=== PATIENT | male | born 1995 | race African-American/Black ===

== ENCOUNTER 2016-10-17 22:18 | Inpatient (IN) | payer OTHER ==
[~2016-10-17] VITALS: Ht 160 cm; Wt 63.5 kg
[~2016-10-17 22:18] MED LIST: EMTR1TAB10 PO; MULT-24 PO
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
[2016-10-17 23:05] VITALS: BP 109/69
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
[2016-10-17] MEDS ORDERED: EMTR1TAB14 PO (23:15)
[2016-10-17 23:22] LABS: *AMPHETAMINE, URINE POSITIVE (NEGATIVE); *BARBITURATE, URINE NEGATIVE (NEGATIVE); *CANNABINOID, URINE POSITIVE (NEGATIVE); *COCCAINE, URINE POSITIVE (NEGATIVE); *OPIATE, URINE NEGATIVE (NEGATIVE); *PHENCYCLIDINE SCREEN,URINE NEGATIVE (NEGATIVE)
[2016-10-17] MEDS ORDERED: DICYCLOMINE HCL 20 MG TABLET PO PRN (23:45)
[2016-10-17] MEDS ORDERED: ACETAMINOPHEN 325 MG TABLET PO PRN (23:45)
[2016-10-17] MEDS ORDERED: CLONIDINE HCL 0.1 MG TABLET PO PRN (23:45)
[2016-10-17] MEDS ORDERED: MIRALAX 17 GM POWD.PACK PO PRN (23:45)
[2016-10-17] MEDS ORDERED: HYDROXYZINE PAMOATE 25 MG CAPSULE PO PRN (23:45)
[2016-10-17] MEDS ORDERED: ONDANSETRON 4 MG/2 ML VIAL IM PRN (23:45)
[2016-10-17] MEDS ORDERED: LOPERAMIDE HCL 2 MG CAPSULE PO PRN ×2 (23:45)
[2016-10-17] MEDS ORDERED: LORAZEPAM 2 MG/1 ML VIAL IM PRN (23:45)
[2016-10-17] MEDS ORDERED: MAG HYDROX/AL HYDROX/SIMETH 30 ML LIQUID UDC PO PRN (23:45)
[2016-10-17] MEDS ORDERED: diphenhydrAMINE 50 MG CAPSULE PO PRN (23:45)
[2016-10-17] MEDS ORDERED: MAGNESIUM HYDROXIDE 30 ML LIQUID UDC PO PRN (23:45)
[2016-10-17] MEDS ORDERED: LORAZEPAM 1 MG TABLET PO PRN ×2 (23:45)
[2016-10-17] MEDS ORDERED: ONDANSETRON ODT 4 MG TAB.RAPDIS SL PRN (23:45)
[2016-10-18] VITALS: BP 123/76
[2016-10-18 04:00] VITALS: BP 110/63
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
[2016-10-18 08:00] VITALS: BP 124/71
--- NOTE | 2016-10-18 08:00 | NUR ---
START OF SHIFT NOTE Received report from night nurse, 20 year old male admitted for Alcohol and Methamphetamine dependence. NKA, Full Code, Regular Diet, Fall and Seizures Precautions. Patient denies Seizures History. Patient denies PMH.Pt did not receive any PRN medication, slept for 5 hours, last CIWA-3. Received pt asleep in his room, Breathing normal no SOB noted, Skin intact warm and dry to touch. No s/s of distress noted. All safety measures in place, Call light within reach. Will cont to monitor.
[2016-10-18] MEDS: MULTIVITAMINS,THERAPEUTIC TABLET PO SCH (08:58)
[2016-10-18] MEDS: FOLIC ACID 1 MG TABLET PO SCH (08:58)
[2016-10-18] MEDS ORDERED: THIAMINE HCL 200 MG/2 ML VIAL IM ONE (09:00)
[2016-10-18] MEDS ORDERED: THIAMINE HCL 100 MG TABLET PO SCH (09:00)
[2016-10-18] MEDS ORDERED: TUBERCULIN,PURIF.PROT.DERIV. 5 TU/0.1 ML TEST ID ONE (09:00)
[2016-10-18] MEDS: IBUPROFEN 400 MG TABLET PO PRN (09:13)
--- NOTE | 2016-10-18 09:13 | NUR ---
PRN ATIVAN/MOTRIN Pt complaining of light headed, pins needle sensation on his hands, sweats, anxiety, agitation, CIWA score noted -7, and also complaining of general body pain 4/10. Administered PRN Ativan 1 mg Po/Motrin 400mg 1 tab Po as ordered. Will cont to monitor and reassess for effectiveness.
--- NOTE | 2016-10-18 10:13 | NUR ---
ATIVAN/MOTRIN REASSESSMENT Per pt pain subside to 1/10, and Ativan was also effective in reducing withdrawal symptoms CIWA score noted -4.
[2016-10-18 12:00] VITALS: BP 126/68
[2016-10-18] MEDS: LORAZEPAM 1 MG TABLET PO SCH ×3 (12:55→20:32)
[2016-10-18] MEDS: THIAMINE HCL 100 MG TABLET PO SCH (14:04)
[2016-10-18 16:00] VITALS: BP 121/70
--- NOTE | 2016-10-18 19:03 | NUR ---
END OF SHIFT NOTE Pt presented with light headed, pins needle sensation on his hands, sweats, anxiety, agitation, CIWA score noted -7, general body pain 4/10. Pt was given PRN Ativan 1 mg Po/Motrin 400mg 1 tab Po as ordered effective with pain level decreased to 1/10 and CIWA score reduce to 4. Pt rested in his room most of the shift and isolated self from peers. He did not attend any groups or activities. Encourage PO fluids as tolerated. All safety measures in place, Call light within reach. Pt endorsed to night nurse in stable condition.
--- NOTE | 2016-10-18 19:25 | NUR ---
Start of shift: Received patient admitted for ETOH and Methamphetamine dependence. Patient is awake, alert, and oriented x4. Mood: depressed, Affect: superficial. Behavior; cooperative with care. Offered snacks, consumed 50%. Speech is clear, normal rate and tone. Able to make needs known. Isolated to self. Patient on 5 day Ativan taper and tolerating well. Will continue to monitor behavior and medication effectiveness.
[2016-10-18 21:39] VITALS: BP 125/81
[2016-10-19] VITALS: BP 122/72
[2016-10-19 04:39] VITALS: BP 120/61
--- NOTE | 2016-10-19 06:28 | NUR ---
End of shift: Patient remained calm and cooperative with care. Isolative to room. Slept 9 hours. Vital signs WNL and charted accordingly. Compliant with medication. Patient remained on 5 day Ativan taper and tolerated well. No behavior issues. Easily re-directable. Patient compliant of hearing voices. However, patient was unable to state what the voices are saying. Will endorse to morning nurse to follow up and monitor.
--- NOTE | 2016-10-19 07:48 | NUR ---
START OF SHIFT NOTE Received report from night nurse, 20 year old male admitted for Alcohol and Methamphetamine dependence. NKA, Full Code, Regular Diet, Fall and Seizures Precautions. Patient denies Seizures History. Patient denies PMH.Pt did not receive any PRN medication, slept for 9 hours, last CIWA-1. Received pt asleep in his room, Breathing normal no SOB noted, Skin intact warm and dry to touch. No s/s of distress noted. All safety measures in place, Call light within reach. Will cont to monitor.
[2016-10-19 08:00] VITALS: BP 114/70
[2016-10-19] MEDS: MULTIVITAMINS,THERAPEUTIC TABLET PO SCH (08:51)
[2016-10-19] MEDS: THIAMINE HCL 100 MG TABLET PO SCH (08:52)
[2016-10-19] MEDS: LORAZEPAM 1 MG TABLET PO SCH ×3 (08:52→20:21)
[2016-10-19] MEDS: FOLIC ACID 1 MG TABLET PO SCH (08:52)
[2016-10-19] MEDS ORDERED: PATIENT MAY USE OWN MED- MD OK PO SCH (09:00)
[2016-10-19 12:00] VITALS: BP 116/60
[2016-10-19 16:00] VITALS: BP 121/87
--- NOTE | 2016-10-19 19:14 | NUR ---
END OF SHIFT NOTE Pt cont with Ativan taper tolerating well. Pt did not attend any groups. Ativan taper effective as evidenced by Vital signs WNL and and CIWA decreased from 5 at 0800 to 4 at 1200 and at 1600 was 3. Pt did not receive any PRN medication during shift. Skin intact warm and dry to touch. Pt remained complaint with plan of care. Encouraged PO fluids as tolerated. All safety measures in place, Call light within reach. Pt endorsed to night nurse in stable condition.
[2016-10-19 20:00] VITALS: BP 121/76
--- NOTE | 2016-10-19 20:00 | NUR ---
START OF SHIFT NOTE Received 20 year old male, awake, lying on bed in room, admitted for Alcohol and Methamphetamine dependence. NKA, Full Code, Regular Diet, Fall and Seizures Precautions. Patient denies PMH. None labored breathing noted, Skin intact warm and dry to touch. No s/s of distress noted. All safety measures in place, Call light within reach. Last CIWA-3. Will continue to monitor.
[2016-10-20] VITALS: BP 124/63
--- NOTE | 2016-10-20 07:15 | NUR ---
START OF SHIFT NOTE 20 year old female admitted to [facility] on 10/17/2016 at 2305 for medically supervised withdrawal from Alcohol and Methamphetamine dependence. Patient reports NKA.. Patient placed on Full Code, Regular Diet, Fall and Seizures Precautions. Patient denies Seizures History. Patient reports no PCP. Received report from night nurse. Pt lethargic, withdrawn, slow to respond to conversation but able to follow commands and is oriented x 4. Denies pain and anxiety. Encouraged participation in group today. Safety measures in place, bed in low position and locked, call light within reach. Will continue to monitor.
--- NOTE | 2016-10-20 07:18 | NUR ---
END OF SHIFT NOTE Px is 20 y/o male with Ativan taper tolerating well. During shift, px stayed most of the time inside his room. Pt did not receive any PRN medication during shift. Pt remained compliant with plan of care. Encouraged PO fluids as tolerated. Slept for 8hrs with fluid intake of 850ml, voided x0 and no BM. All safety measures in place, Call light within reach. Latest CIWA 3. Px endorsed to AM shift nurse
[2016-10-20 08:00] VITALS: BP 121/77
[2016-10-20] MEDS: FOLIC ACID 1 MG TABLET PO SCH (09:30)
[2016-10-20] MEDS: THIAMINE HCL 100 MG TABLET PO SCH (09:30)
[2016-10-20] MEDS: MULTIVITAMINS,THERAPEUTIC TABLET PO SCH (09:30)
[2016-10-20] MEDS: LORAZEPAM 1 MG TABLET PO SCH ×4 (09:30→21:00)
[2016-10-20 12:00] VITALS: BP 123/80
[2016-10-20 16:00] VITALS: BP 125/66
--- NOTE | 2016-10-20 19:25 | NUR ---
Start of Shift Patient Received. Patient is in his room sleeping but aroused to verbal stimuli. Breathing even and non labored. No signs of pain or discomfort noted. Patient is a 20 year old male, admitted on 10/17/16 for ETOH Dependence and is currently receiving a 5 day Ativan taper. No known allergies, full code, following a regular diet, placed on fall and seizure precautions, and skin noted intact. Patient denies past medical history but is noted HIV(+). Per endorsement, patient noted to be very withdrawn and isolative to room. No PRN medications administered. Last noted CIWA is 5. All needs attended to promptly. Will continue plan of care as ordered.
--- NOTE | 2016-10-20 19:31 | NUR ---
END OF SHIFT NOTE 20 year old male whom identifies as a female, admitted to [facility] on 10/17/2016 at 2305 for medically supervised withdrawal from Alcohol and Methamphetamine dependence. Patient reports NKA.. Patient placed on Full Code, Regular Diet, Fall and Seizures Precautions. Patient sleeping each time assessed during shift but awakens to verbal, slow to respond to questions, oriented x 4. Denies pain and anxiety. No PRN medications given. CIWA scores of 5 at 0926; score of 8 at 1236; and 5 at 1600. Appetite good, ate 75 % at breakfast and 100% at lunch and dinner. Intake 1250 ml and void x 2, no stool. At this time, pt has no complaints, Dr Johnson is aware of pt's sleeping patterns, NNO. Pt bed is locked in a low position, call light within reach, side rails up x 2. SBAR report given to oncoming shift.
[2016-10-20 20:30] VITALS: BP 119/68
[2016-10-21 00:15] VITALS: BP 118/71
[2016-10-21 04:10] VITALS: BP 113/63
--- NOTE | 2016-10-21 07:10 | NUR ---
End of Shift Patient is in bed sleeping. Breathing even and non labored. No signs of pain or discomfort. Patient was admitted on 10/17/16 for ETOH Dependence and is currently receiving a 5 day Ativan taper. Patient noted to be sleeping during routine medication pass with no signs of increased signs of withdrawal. Last noted CIWA 3. All needs attended to promptly. Will continue plan of care as ordered.
--- NOTE | 2016-10-21 07:30 | NUR ---
Start of shift note; Received report from night nurse. Patient is a 20 year old male admitted on 10/17/16 for ETOH dependence. Patient was placed on a 5 day Ativan taper, no adverse reactions. Patient has a history of HIV. NKA, on regular diet and fall and seizure precautions. All safety measures secured. Patient slept for 5 hours. Patient's last CIWA is 3 at 0400. All safety measures secured. Will continue to monitor patient.
[2016-10-21 08:00] VITALS: BP 124/75
[2016-10-21] MEDS: LORAZEPAM 1 MG TABLET PO SCH ×3 (09:12→21:12)
[2016-10-21] MEDS: THIAMINE HCL 100 MG TABLET PO SCH (09:12)
[2016-10-21] MEDS: MULTIVITAMINS,THERAPEUTIC TABLET PO SCH (09:12)
[2016-10-21] MEDS: FOLIC ACID 1 MG TABLET PO SCH (09:12)
[2016-10-21 12:00] VITALS: BP 133/72
[2016-10-21 16:00] VITALS: BP 127/83
--- NOTE | 2016-10-21 18:16 | NUR ---
End of shift note; Patient is AOX4. Patient is a 20 year old male admitted on 10/17/16 for ETOH dependence. Patient was placed on a 5 day Ativan taper, no adverse reactions. Patient has a history of HIV. NKA, on regular diet and fall and seizure precautions. Patient remained compliant with treatment plan. Medications were effective in reducing withdrawal symptoms. All safety measures secured. Met all needs.
--- NOTE | 2016-10-21 19:20 | NUR ---
Start of Shift Patient Received. Patient is in activities room participating in group activities. Patient is a 20 year old male, admitted on 10/17/16 for ETOH Dependence and is currently receiving a 5 day Ativan taper. No known allergies, full code, following a regular diet, placed on fall and seizure precautions, and skin noted intact. Patient denies past medical history but is noted HIV(+). Per endorsement, patient noted to participate in group activities and meetings. No PRN Medications administered. Last noted CIWA is 4. All needs attended to promptly. Will continue plan of care as ordered.
[2016-10-21 20:30] VITALS: BP 141/91
[2016-10-21] MEDS: IBUPROFEN 400 MG TABLET PO PRN (21:12)
--- NOTE | 2016-10-21 21:15 | NUR ---
PRN Medication administration Patient is verbalizing pain due to headache 5/10 with PRN Motrin administered as per orders. Will continue to monitor.
--- NOTE | 2016-10-21 22:00 | NUR ---
PRN Medication Reassessment Patient is noted in bed sleeping. Breathing even and non labored. Patient was given PRN Motrin for pain of 5/10 headache. Patient is able to sleep well with no interruptions or complications noted. No facial grimacing noted. PRN Motrin noted to be effective. Will continue to monitor.
[2016-10-22 00:35] VITALS: BP 122/79
[2016-10-22 04:06] VITALS: BP 118/67
[2016-10-22 06:52] LABS: BASOPHILS % (AUTO) 0.7 % (0.0-2.0); EOSINOPHILS # (AUTO) 0.1 K/uL (0.0-0.7); EOSINOPHILS % (AUTO) 1.8 % (0.0-7.0); HEMATOCRIT 44.5 % (40-50); HEMOGLOBIN 14.3 G/DL (14.0-18.0); LYMPHOCYTES # (AUTO) 2.4 K/UL (0.8-4.8); LYMPHOCYTES % (AUTO) 33.7 % (20.5-74.5); MEAN CORPUSCULAR HEMOGLOBIN 27.3 UUG (27.0-31.0); MEAN CORPUSCULAR HGB CONC 32 g/dL (32.0-37.0); MEAN CORPUSCULAR VOLUME 85.3 FL (82.0-92.0); MONOCYTES # (AUTO) 0.4 K/UL (0.1-1.30); MONOCYTES % (AUTO) 6.3 % (0-11); NEUTROPHILS # (AUTO) 4.2 K/UL (1.8-8.9); NEUTROPHILS % (AUTO) 57.5 % (31.5-64.5); PLATELET COUNT (AUTO) 168 K/UL (150-450); RED BLOOD CELL COUNT(AUTO) 5.22 MIL/UL (4.7-6.1)
[2016-10-22 06:54] LABS: WHITE BLOOD COUNT (AUTO) 7.1 K/UL (4.0-11.2)
[2016-10-22 07:23] LABS: ALANINE AMINOTRANSFERASE 19 U/L (16-63); ALKALINE PHOSPHATASE 53 U/L (50-136); ASPARTATE AMINOTRANSFERASE 14 U/L (15-37); BILIRUBIN,DIRECT < 0.1 mg/dL (0.0-0.2); BILIRUBIN,TOTAL 0.3 mg/dL (0.2-1.0); CARBON DIOXIDE 33 mmol/L (21-32); CHLORIDE 105 mmol/L (98-107); CREATININE 1.1 mg/dL (0.6-1.3); GLUCOSE 108 mg/dL (74-106); MAGNESIUM 1.9 mg/dL (1.8-2.4); PHOSPHOROUS 3.8 mg/dL (2.5-4.9); POTASSIUM 4.5 mmol/L (3.5-5.1); TOTAL PROTEIN, SERUM 7.1 g/dL (6.4-8.2); UREA NITROGEN, BLOOD 9 mg/dL (7-18)
--- NOTE | 2016-10-22 07:24 | NUR ---
End of Shift Patient is in bed awake, alert and verbally responsive. Breathing even and non labored. No signs of pain or discomfort. Patient was admitted on 10/17/16 for ETOH Dependence and is currently receiving a 5 day Ativan taper. Patient was given PRN Motrin for headache of 10 with medication noted to be effective. Last noted CIWA 6. All needs attended to promptly. Will endorse to continue plan of care as ordered.
--- NOTE | 2016-10-22 07:53 | NUR ---
BEGINNING OF SHIFT Patient endorsement report received from night club manager nurse, all pertinent information discussed. Patient is a 20 year old male with admitting Dx: etoh/Methamphetamines dependence. Patient currently under close observation, with ongoing 5 day Ativan taper as ordered, and is currently scheduled to begin day 5 of taper. Patient slept for 8 hours and received prn: Motrin as per night club manager, medications were effective. Patient with last ciwa score of: 6. Patient received awake, alert and oriented x4, educated regarding plan of care for the day and medication regimen with good verbal understanding. Fall and seizure precautions observed. Safety measures in place. will continue to monitor closely.
[2016-10-22 08:59] VITALS: BP 110/62
[2016-10-22] MEDS: FOLIC ACID 1 MG TABLET PO SCH (09:17)
[2016-10-22] MEDS: THIAMINE HCL 100 MG TABLET PO SCH (09:17)
[2016-10-22] MEDS: LORAZEPAM 1 MG TABLET PO SCH ×2 (09:18→20:39)
[2016-10-22] MEDS: MULTIVITAMINS,THERAPEUTIC TABLET PO SCH (09:18)
[2016-10-22 13:00] VITALS: BP 130/72
[2016-10-22 17:15] VITALS: BP 128/84
--- NOTE | 2016-10-22 19:01 | NUR ---
END OF SHIFT Patient alert and oriented x4, vital signs stable during shift. Patient compliant with therapeutic plan of care. Patient with admitting Dx: ETOH/methamphetamine dependence. Patient currently with ongoing 5 day Ativan taper, well tolerated, no ASE, currently on day 5 of taper. Detox medication effective at reducing withdrawal symptoms. 0900 assessment patient presented with: moderate anxiety with ciwa score of: 4; 1300 assessment patient presented with: anxiety ciwa score: 3; 1700 assessment patient presented with: mild anxiety with ciwa score of: 1. Detox medication effective at reducing withdrawal Symptoms. Patient was administered no PRNs during shift. Patient denies any SI/HI. Encouraged to attend group therapies/sessions to learn new coping skills to prevent relapse, noted attending and participating.Encouraged adequate PO fluid intake as tolerated. Safety measures in place. Call light kept with in reach. All needs met and rendered. Patient endorsed to pest control service technician nurse, all pertinent information discussed.
--- NOTE | 2016-10-22 19:25 | NUR ---
Start of Shift Patient Received. Patient is in activities room participating in group activities. Patient is a 20 year old male, admitted on 10/17/16 for ETOH Dependence and is currently receiving a 5 day Ativan taper. No known allergies, full code, following a regular diet, placed on fall and seizure precautions, and skin noted intact. Patient denies past medical history but is noted HIV(+). Per endorsement, patient noted to participate in group activities and meetings. No PRN Medications administered. Last noted CIWA is 1. All needs attended to promptly. Will continue plan of care as ordered.
[2016-10-22 20:33] VITALS: BP 136/77
[2016-10-23 00:20] VITALS: BP 122/71
[2016-10-23 04:26] VITALS: BP 119/79
--- NOTE | 2016-10-23 07:04 | NUR ---
End of Shift Patient is in bed sleeping. Breathing even and non labored. No signs of pain or discomfort. Patient was admitted on 10/17/16 for ETOH Dependence and is currently receiving a 5 day Ativan taper. Patient was given PRN Motrin for headache of 06/22 with medication noted to be effective. Last noted CIWA 6. All needs attended to promptly. Will endorse to continue plan of care as ordered.
--- NOTE | 2016-10-23 07:30 | NUR ---
Start of shift note; Received report from night nurse. Patient is a 20 year old male admitted on 10/17/16 for ETOH dependence. Patient was placed on a 5 day Ativan taper, no adverse reactions. Patient has a history of HIV. NKA, on regular diet and fall and seizure precautions. All safety measures secured. Patient slept for 8 hours. Patient's last CIWA is 3 at 0400. All safety measures secured. Will continue to monitor patient.
[2016-10-23 08:00] VITALS: BP 118/70
[2016-10-23] MEDS: MULTIVITAMINS,THERAPEUTIC TABLET PO SCH (08:45)
[2016-10-23] MEDS: THIAMINE HCL 100 MG TABLET PO SCH (08:45)
[2016-10-23] MEDS: FOLIC ACID 1 MG TABLET PO SCH (08:46)
[2016-10-23 12:00] VITALS: BP 122/80
[2016-10-23 16:00] VITALS: BP 114/80
--- NOTE | 2016-10-23 18:15 | NUR ---
End of shift note; Patient is AOX4. Patient is a 20 year old male admitted on 10/17/16 for ETOH dependence. Patient was placed on a 5 day Ativan taper, no adverse reactions. Patient has a history of HIV. NKA, on regular diet and fall and seizure precautions. Patient remained compliant with treatment plan. Medications were effective in reducing withdrawal symptoms. Patient is medically cleared for discharge tomorrow. All safety measures secured. Met all needs.
[2016-10-23 20:00] VITALS: BP 136/75
--- NOTE | 2016-10-23 20:00 | NUR ---
Start of shift note Received patient is a 20 year old male admitted on 10/17/16 for ETOH dependence. Px completed a 5 day Ativan taper, no adverse reactions. Patient has a history of HIV. NKA, on regular diet and fall and seizure precautions. Px complained H/A /10 and requested for sleeping pill. All safety measures secured. Scheduled for D/C tomorrow 10/24/2016. All safety measures secured. Will continue to monitor patient.
[2016-10-23] MEDS: IBUPROFEN 400 MG TABLET PO PRN (20:07)
--- NOTE | 2016-10-23 20:07 | NUR ---
Px complained of H/A 5/10 and requested for sleeping pill. Motrin 400mg 1 tab, Tylenol 325mg 2 tabs, and Benadryl 50mg 1 cap given PO as PRN meds.
--- NOTE | 2016-10-23 21:07 | NUR ---
Re evaluation for PRN meds Px is re evaluated after an hr. Px still awake but drowsy. No more H/A as of the moment . will continue to monitor.
[2016-10-24] VITALS: BP 129/76
--- NOTE | 2016-10-24 | NUR ---
CIWA is deferred due to the px is asleep. To assess if the px is awake per doctor's order.
--- NOTE | 2016-10-24 07:19 | NUR ---
324 End of Shift note Px is a 20 year old male admitted for ETOH dependence. Px completed a 5 day Ativan taper, no adverse reactions. Patient has a history of HIV. NKA, on regular diet and fall and seizure precautions. Px complained H/A 5/10 and requested for sleeping pill. Benadryl 50mg, Tylenol 650mg, and Motrin 400mg given PO as PRN meds. Pain decreased to 0/10.They were effective. Oral intake of 800ml, voided 1x, No BM. Slept for 8hrs. Scheduled for D/C 10/24/2016.All safety measures secured. All safety measures secured. Will continue to monitor.
--- NOTE | 2016-10-24 07:30 | NUR ---
Start of shift note; Received report from night nurse. Patient is a 20 year old male admitted on 10/17/16 for ETOH dependence. Patient was placed on a 5 day Ativan taper, no adverse reactions. Patient has a history of HIV. NKA, on regular diet and fall and seizure precautions. All safety measures secured. Patient slept for 8 hours. Patient's last CIWA is 1 at 0400. All safety measures secured. Patient is medically cleared for discharge today. Will continue to monitor patient.
[2016-10-24 08:00] VITALS: BP 112/68
[2016-10-24] MEDS: MULTIVITAMINS,THERAPEUTIC TABLET PO SCH (08:29)
[2016-10-24] MEDS: THIAMINE HCL 100 MG TABLET PO SCH (08:30)
[2016-10-24] MEDS: FOLIC ACID 1 MG TABLET PO SCH (08:30)
--- NOTE | 2016-10-24 09:40 | NUR ---
Discharge note; Patient is AOX4. All patient's belongings, valuables, medications given to patient. Patient completed taper without any adverse reactions. Patient was discharged on 10/24/16 at 0940. Patient left in a stable condition. Patient to be transferred to [facility]. Met all patients needs.
== END 2016-10-24 09:40 | disposition other institution (70) | DRG 895 ==
LOC: SRC 22:18
PROVIDERS: ADMIT Internal Medicine; ATTEND Internal Medicine
PROC: HZ2ZZZZ Detoxification Services for Substance Abuse Treatment (ICD-10-PCS; principal; 2016-10-17)
PROC: HZ41ZZZ Group Counseling for Substance Abuse Treatment, Behavioral (ICD-10-PCS; 2016-10-20)
PROC: HZ31ZZZ Individual Counseling for Substance Abuse Treatment, Behavioral (ICD-10-PCS; 2016-10-20)
DX: F10.230 Alcohol dependence with withdrawal, uncomplicated (principal); G92 Toxic encephalopathy; T43.621A Poisoning by amphetamines, accidental (unintentional), initial encounter; Y90.9 Presence of alcohol in blood, level not specified; Y92.9 Unspecified place or not applicable; F64.9 Gender identity disorder, unspecified; F15.93 Other stimulant use, unspecified with withdrawal
CPT/HCPCS: 36415; 70030-TC; 80307; 80324; 80349; 80353; 83735; 84100; 85025; 86580; A4663; J3411; Q0163